=== PATIENT | female | born 1990 | race American Indian/Alaskan Native ===

== ENCOUNTER 2020-07-16 10:36 | Outpatient (CLI) | payer MEDICAID, OTHER ==
[2020-07-16 13:52] VITALS: BP 118/65
== END 2020-07-16 14:03 | disposition home or self-care (01) ==
LOC: TRG 10:36 → APU 10:36 → TRG 14:03
PROVIDERS: ATTEND Obstetrics & Gynecology
DX: O47.1 False labor at or after 37 completed weeks of gestation (principal); Z3A.38 38 weeks gestation of pregnancy
CPT/HCPCS: 59025